=== PATIENT | female | born 1960 | race African-American/Black ===

== ENCOUNTER → 2017-05-18 | Day surgery (SDC) | payer OTHER, BC ==
--- NOTE | 2017-05-18 11:45 | OP ---
DATE OF OPERATION: 05/18/2017 PREOPERATIVE DIAGNOSIS: Abnormal left mammography. POSTOPERATIVE DIAGNOSIS: Abnormal left mammography. PROCEDURE: Left stereotactic needle biopsy with clips x2. SURGEON: Heidi Hassan MD ANESTHESIA: Local. COMPLICATIONS: None. This was a sterile procedure. INDICATION FOR PROCEDURE: Patient presented with screening mammography that noted a wide area of microcalcifications that seemed to be with normal tissue in the inferior left breast, one anterior, one posterior. My recommendation was needle biopsy. The procedure was discussed with all her questions answered. PROCEDURE IN DETAIL: Patient was brought to [facility] [place], laid prone on the Lorad table. Using the caudal approach, the calcifications in the inferior left breast were identified. First, the more anterior of the pair was targeted. A sterile prep was obtained. A target was chosen. There was a positive stroke margin. Using Betadine and 1% lidocaine, a 10-gauge Suros device was used to take several cores from this area. Cores showed calcification within them. These were handled using the calcification protocol. A bar-shaped clip was deployed in the area. Hemostasis was assured with direct pressure. Next, the more-posterior calcifications were identified. A sterile prep was obtained. A target was chosen. There was a positive stroke margin. Using Betadine and 1% lidocaine, a 10-gauge Suros device was used to take several cores from this area. Cores showed calcification within them. These were handled using the calcification protocol. A 8 shaped-shaped clip was deployed in this area. Hemostasis was assured with direct pressure. The incisions were closed with Steri-Strips. She tolerated the procedure well and left the breast imaging center in good condition. HEIDI HASSAN M.D. JOSE [id number] MTDD
--- NOTE | 2017-05-19 15:48 | PATH ---
Surgical Pathology Report Patient Name: AJ RICKS [facility]. Rec. #: [id number] /Age/Gender: 1960 (Age: 56) / F Account: [id number] Location: [facility] Taken: 05/18/2017 Received: 05/18/2017 Reported: 05/19/2017 Physicians: Heidi Jones M.D. Specimen(s) Received A: LEFT BREAST SPECIMEN, SITE 1, ANTERIOR, WITH CALCIFICATIONS. B: LEFT BREAST SPECIMEN, SITE 1, ANTERIOR, WITHOUT CALCIFICATIONS. C: LEFT BREAST SPECIMEN, SITE 2, POSTERIOR, WITH CALCIFICATIONS. D: LEFT BREAST SPECIMEN, SITE 2, POSTERIOR, WITHOUT CALCIFICATIONS Clinical History Nonpalpable lesion Mammographic findings: Microcalcification, suspicious Site 1= anterior; site 2= posterior Final Diagnosis A. LEFT BREAST, SITE #1 ANTERIOR WITH CALCIFICATION, STEREOTACTIC NEEDLE CORE BIOPSY: DUCTAL CARCINOMA IN SITU (DCIS), HIGH NUCLEAR GRADE, MICROPAPILLARY AND PAPILLARY PATTERNS WITH CENTRAL NECROSIS AND ASSOCIATED CALCIFICATION. B. LEFT BREAST, SITE #1 ANTERIOR WITHOUT CALCIFICATION, STEREOTACTIC NEEDLE CORE BIOPSY: DUCTAL CARCINOMA IN SITU (DCIS), HIGH NUCLEAR GRADE, MICROPAPILLARY AND PAPILLARY PATTERNS WITH CENTRAL NECROSIS AND ASSOCIATED CALCIFICATION. Results of Estrogen Receptor (ER) and Progesterone Receptor (WV) studies performed at [facility] are as follows: ER (clone 6F11 mouse monoclonal antibody by Leica):~75% nuclear staining with moderate intensity (Positive). WV (clone16 mouse monoclonal antibody by Leica):~90% nuclear staining with strong intensity (Positive). Positive and negative controls (internal if applicable) show appropriate results. Formalin fixation and cold ischemic times are within current ASCO/CAP recommendations for ER, WV and Her2 testing. C. LEFT BREAST, SITE #2 POSTERIOR WITH CALCIFICATION, STEREOTACTIC NEEDLE CORE BIOPSY: DUCTAL CARCINOMA IN SITU (DCIS), HIGH NUCLEAR GRADE, MICROPAPILLARY AND FOCAL SOLID PATTERNS WITH CENTRAL NECROSIS AND ASSOCIATED CALCIFICATION. Results of Estrogen Receptor (ER) and Progesterone Receptor (WV) studies performed at [facility] are as follows: ER (clone 6F11 mouse monoclonal antibody by Leica):~75% nuclear staining with moderate intensity (Positive). WV (clone16 mouse monoclonal antibody by Leica):~50% nuclear staining with strong intensity (Positive). Positive and negative controls (internal if applicable) show appropriate results. Formalin fixation and cold ischemic times are within current ASCO/CAP recommendations for ER, WV and Her2 testing. D. LEFT BREAST, SITE #2 POSTERIOR WITHOUT CALCIFICATION, STEREOTACTIC NEEDLE CORE BIOPSY: DUCTAL CARCINOMA IN SITU (DCIS), HIGH NUCLEAR GRADE, MICROPAPILLARY PATTERN WITH CENTRAL NECROSIS AND ASSOCIATED CALCIFICATION. Comment: Immunohistochemical stains for smooth muscle myosin heavy chain and p63 on Specimen B and Specimen C show preservation of the myoepithelial cell layer. This case was discussed with Dr. Jones on May 19, 2017. Electronically Signed Chaka Taylor M.D. Gross Description A. Received in formalin labeled "site 1 anterior left breast with calcifications," are 3 smiley-yellow, cylindrical portions of fibroadipose tissue ranging from 2.5-3.0 cm in length and averaging 0.2 cm in diameter. The specimens are submitted in toto in one cassette. B. Received in formalin labeled "site 1 anterior left breast without calcifications," are 4 smiley-yellow, cylindrical portions of fibroadipose tissue ranging from 2.5-3.0 cm in length and averaging 0.2 cm in diameter. The specimens are submitted in toto in one cassette. C. Received in formalin labeled "site 2 posterior left breast with calcifications," are 5 smiley-yellow, cylindrical portions of fibroadipose tissue ranging from 0.7-2.0 cm in length and averaging 0.2 cm in diameter. The specimens are submitted in toto in one cassette. D. Received in formalin labeled "site 2 posterior left breast without calcifications," are 3 smiley-yellow, cylindrical portions of fibroadipose tissue ranging from 2.2-3.3 cm in length and averaging 0.2 cm in diameter. The specimens are submitted in toto in one cassette. Time to formalin fixation: 5 minutes Total formalin fixation time: Approximately 7 hours. 05/18/201705/18/2017
== END | disposition home or self-care (01) ==
LOC: FMAMMOTONE 09:26
PROVIDERS: ATTEND Surgery
PROC: 0HBU3ZX Excision of Left Breast, Percutaneous Approach, Diagnostic (ICD-10-PCS; principal; 2017-05-18)
DX: D05.12 Intraductal carcinoma in situ of left breast (principal); R92.8 Other abnormal and inconclusive findings on diagnostic imaging of breast
CPT/HCPCS: 19081; 19082; 87899; 88305-TC; 88341-TC; 88342-TC; A4648

== ENCOUNTER 2017-07-15 06:47 | Day surgery (SDC) | payer BC, OTHER ==
[2017-07-14 12:19] VITALS: BMI 25.9
[2017-07-15] MEDS ORDERED: PROPOFOL 20 ML ONE (10:10)
[2017-07-15] MEDS ORDERED: fentaNYL CITRATE 250 MCG/5 ML VIAL ONE (10:10)
[2017-07-15] MEDS ORDERED: LIDOCAINE HCL/PF 2% SDV 5ML VIAL ONE (10:11)
[2017-07-15] MEDS ORDERED: ROCURONIUM BROMIDE 50 MG/5 ML VIAL ONE ×2 (10:11→14:09)
[2017-07-15] MEDS ORDERED: DEXAMETHASONE SOD PHOSPHATE 4 MG/1 ML VIAL ONE (10:11)
[2017-07-15] MEDS ORDERED: MIDAZOLAM HCL 2 MG/2 ML SINGLE DOSE VIAL ONE (10:11)
[2017-07-15] MEDS ORDERED: ISOSULFAN BLUE 10 MG/ML VIAL SQ ONE (12:30)
[2017-07-15] MEDS ORDERED: ceFAZolin SODIUM 1 GM VIAL ONE (12:38)
[2017-07-15] MEDS ORDERED: SODIUM CHLORIDE 0.9% P/F 10 ML VIAL IJ ONE (12:38)
[2017-07-15] MEDS ORDERED: ceFAZolin SODIUM 1 GM VIAL IVPB ONE (12:40)
[2017-07-15] MEDS ORDERED: DESFLURANE GAS 240 ML BOTTLE IH ONE (13:00)
[2017-07-15] MEDS ORDERED: ONDANSETRON 4 MG/2 ML VIAL IVPUSH PRN (14:40)
[2017-07-15] MEDS ORDERED: LACTATED RINGERS SOLUTION 1,000 ML IV SCH (14:45)
[2017-07-15] MEDS ORDERED: GLYCOPYRROLATE 0.2 MG/1 ML VIAL ONE (15:49)
[2017-07-15] MEDS ORDERED: NEOSTIGMINE METHYLSULFATE 0.5 MG/ML - 10 ML MDV ONE (15:49)
[2017-07-15] MEDS ORDERED: ONDANSETRON 4 MG/2 ML VIAL ONE (16:29)
--- NOTE | 2017-07-15 16:39 | OP ---
Operative Note - Note: Operative Date: 07/15/17 Pre-Operative Diagnosis: Left Breast Ductal Carcinoma In-Situ Operation: Left Breast Reconstruction after Lumpectomy, Right Breast Mastopexy with Small Reduction for Symmetry. Implants: None Surgeon: Orlando Nagel Anesthesiology Physician Assistant: Candelario Grant Anesthesia: General Drains & Tubes with Location: Diana Drains Bilateral Operative Report Dictated: Yes
[2017-07-15] MEDS ORDERED: ACETAMINOPHEN 1000 MG/100 ML VIAL (NON FORMULARY) IVPB ONE (18:00)
[2017-07-15] MEDS: oxyCODONE HCL 5 MG TABLET PO PRN (18:58)
--- NOTE | 2017-07-15 21:17 | OP ---
DATE OF OPERATION: 07/12/2017 PREOPERATIVE DIAGNOSIS: Left breast ductal carcinoma in situ, left breast intraductal papilloma. SURGEON: Heidi Jones MD ANESTHESIA: General. ESTIMATED BLOOD LOSS: Minimal. COMPLICATIONS: None. This was a sterile procedure. OVERHEAD CRANE OPERATOR: Orlando Nagel MD INDICATION FOR PROCEDURE: Patient had a routine screening mammography that noted 2 areas of clustered microcalcifications in the inferior left breast, and on ultrasound, noted a left breast, 6 o'clock, retroareolar nodule. Biopsy of all these 3 areas was performed. The calcification in both areas showed ductal carcinoma in situ, and the nodule showed an intraductal papilloma. My recommendation was a lumpectomy and excision of the nodule. The procedure was discussed with her. She met with Dr. Nagel to discuss a mastopexy at the same time. The procedure was discussed with her. All of her questions answered. PROCEDURE IN DETAIL: Patient was brought to [facility], taken into breast imaging where wire was used to localize the 3 clips in the inferior left breast, then brought to the operating room. She was taken to Nuclear Medicine, and technetium labeled sulfur colloid was injected into the left subareolar plexus at the 6 o'clock location to localize the sentinel node. She was brought up to the operating room . After induction of general anesthesia and IV antibiotics, both breasts and axilla were prepped and draped in usual sterile fashion. Isosulfan blue 5 mL was injected into the left subareolar plexus. The breast was then massaged for 5 minutes. The breast was re-prepped, re-draped, and a 4-cm incision was made in the left axilla, carried down to the clavipectoral fascia to identify 2 sentinel lymph nodes that were both blue and hot. These were sent for pathology analysis for permanent section. There was no other blue dye radioactivity or pathologically feeling lymph nodes in the left axilla. Therefore, next, a left breast excisional biopsy was performed. The incisions were made by Dr. Nagel for a reduction mammoplasty, and I used the inferior incision and the wire was used as a guide to get down to the area of interest in the 6 o'clock retroareolar location. This was excised en bloc and sent for specimen radiograph. Hemostasis was assured with electrocautery. Next, the left breast lumpectomy was performed. Again, the incision was made by Dr. Nagel, was used to take almost the entire inferior pole of the left breast down to the subcutaneous fat over the pectoralis. This was lagged with a long stitch lateral, short stitch superior, sent for specimen radiograph as a left breast lumpectomy. I took a new posterior margin as I felt that was close posteriorly. This was taken down to the pectoralis muscle and tagged with a stitch at the old margin. A specimen radiograph was performed, and I looked at these. The intraductal papilloma clip and wire were intact within the specimen. On the specimen for the left breast lumpectomy, there seemed to be multiple areas of clustering microcalcifications extending from the wire up superiorly towards the nipple. There was actually one set of calcifications right at the edge superiorly. Therefore, I went back and took a new superior margin with a stitch at the old margin. This was sent to Pathology for permanent section. Hemostasis assured with electrocautery. The patient was then left with Dr. Nagel to finish the plastics part of the procedure. Steffany [id number]
--- NOTE | 2017-07-15 21:53 | OP ---
DATE OF OPERATION: 07/15/2017 PREOPERATIVE DIAGNOSIS: Left breast ductal carcinoma in situ. POSTOPERATIVE DIAGNOSIS: Left breast ductal carcinoma in situ. PROCEDURE PERFORMED: Left breast reconstruction after lumpectomy and right breast mastopexy with small reduction for symmetry. SURGEON: Orlando Gutiérrez MD GERIATRICS PHYSICIAN: KATIE Gallagher ANESTHESIA: General via endotracheal tube. DESCRIPTION OF PROCEDURE: The patient was placed on the operating table in supine position, and general anesthesia was administered by the anesthesiologist. The area of the chest was then prepped and draped in usual sterile fashion. Dr. Jones approached the left breast through an incision inferior to the nipple-areola complex and performed lumpectomies based on the 3 wires that had been placed by Radiology. At the conclusion of her procedure, the nipple was left on a superiorly-based pedicle although it was thinned more than had been planned. The tissue had been removed from the inferior quadrant of the breast, removing a width of approximately 6 cm, extending up to and beneath the nipple-areola complex. Markings were used for surgery as they had been placed the day prior to surgery in the standing position, and markings were continued in a [place] pattern as designed. Superomedial and superolateral and superior flaps were developed, keeping a superomedial pedicle intact to provide vascularity to the nipple-areola complex. The medial and lateral pillars were mobilized and reapproximated centrally over a [place] drain which was placed and will exit the inframammary wound laterally. Dissection within the breast revealed multiple breast cysts, and these were additionally opened as necessary. The flaps were then mobilized and inset with 2-0 silk sutures as zelaya positions, and closure was performed in layered fashion. Deep tissues were closed using 3-0 and 4-0 Biosyn suture in interrupted buried fashion, and the inframammary wound was closed with number 4-0 V-Loc 90 in a continuous subcuticular fashion. All other wounds were closed using 4-0 nylon suture in simple interrupted fashion. Nipple remained with good color through the end of the procedure. The right breast was then addressed, and a reduction with mastopexy was performed for symmetry, removing approximately 100 mL of tissue. The flaps were created as designed by the markings made preoperatively. Dissection was carried down through subcutaneous tissues, and again, multiple breast cysts were identified, and some were excised on the right side. Hemostasis was achieved with electrocautery, and a Diana drain was additionally inserted and exited through the inframammary wound laterally. Closure was then performed in layered fashion. Deep tissues were closed with number 3-0 and 4-0 Biosyn suture in interrupted buried fashion, and all wounds were closed with number 4-0 V-Loc 90 suture in a continuous intradermal fashion. Wounds were further secured with Steri-Strips, and sterile dressings were applied and secured with a surgical bra. The patient was then awoken from anesthesia without any difficulty, and she was taken from the operating room to the recovery room in satisfactory condition, having tolerated the procedure well. ORLANDO GUTIÉRREZ M.D. [id number]
[2017-07-16] MEDS: oxyCODONE HCL 5 MG TABLET PO PRN ×2 (06:35→11:15)
--- NOTE | 2017-07-16 09:58 | PN ---
Progress Note (short form) - Note Progress Note: pod 1 doing well. afebrile. vss incisions healing well, nipples viable. dressing changed. incentive spirometer, ambulate, d/c today
[2017-07-16 14:47] VITALS: BP 113/74; PULSE 58; TEMP 98.7
[2017-07-16] MEDS ORDERED: oxyCODONE HCL 5 MG TABLET PO ONE (17:00)
--- NOTE | 2017-07-17 16:44 | SURG ---
Surgery Drafter Chief Design Note Drafter Chief Design: Candelario Grant PA-C Date of Service: 07/17/17 Diagnosis: Left Breast Ductal Carcinoma In-Situ Procedure: Left Breast Reconstruction after Lumpectomy, Right Breast Mastopexy with Small Reduction for Symmetry. I was present for the entirety of the operative procedure. For further detail, please refer to operative report. Visit type - Case Type Case Type: Scheduled Admission - New patient This patient is new to me today: Yes Date on this admission: 07/17/17
--- NOTE | 2017-07-19 14:28 | PATH ---
Surgical Pathology Report Patient Name: AJ RICKS [facility]. Rec. #: [id number] /Age/Gender: 1960 (Age: 56) / F Account: [id number] Location: AMBULATORY SURG Taken: 07/15/2017 Received: 07/15/2017 Reported: 07/19/2017 Physicians: Heidi Jones M.D. Specimen(s) Received A: LEFT BREAST EXCISION B: LEFT AXILLARY SENTINEL LYMPH NODE #1 C: LEFT AXILLARY SENTINEL LYMPH NODE #2 D: LEFT BREAST NEW POSTERIOR E: LEFT BREAST LUMPECTOMY F: LEFT BREAST NEW SUPERIOR MARGIN G: RIGHT BREAST TISSUE H: LEFT BREAST TISSUE Clinical History Left breast DCIS/papilloma Final Diagnosis A. BREAST, LEFT, EXCISION: INTRADUCTAL PAPILLOMA IN A BACKGROUND OF PROLIFERATIVE FIBROCYSTIC TO FIBROADENOMATOID CHANGES INCLUDING STROMAL FIBROSIS, APOCRINE METAPLASIA, MICROCYST FORMATION, USUAL DUCTAL HYPERPLASIA, DUCT ECTASIA, AND CHANGES OF PRIOR BIOPSY. B. AXILLA, LEFT, SENTINEL NODE #1, EXCISION: ONE BENIGN LYMPH NODE (0/1). C. AXILLA, LEFT, SENTINEL NODE #2, EXCISION: ONE BENIGN LYMPH NODE (0/1). D. BREAST, LEFT, NEW POSTERIOR MARGIN, EXCISION: DUCTAL CARCINOMA IN SITU (DCIS), HIGH NUCLEAR GRADE. DCIS IS PRESENT IN THREE OF TEN SLIDES (3/10). DCIS IS 3 MM FROM NEW POSTERIOR MARGIN. E. BREAST, LEFT, LUMPECTOMY: MULTIFOCAL DUCTAL CARCINOMA IN SITU (DCIS), HIGH NUCLEAR GRADE, SOLID, PAPILLARY AND MICROPAPILLARY PATTERNS WITH CENTRAL NECROSIS AND ASSOCIATED MICROCALCIFICATIONS. DCIS RANGE IN SIZE FROM 1-6 MM IN GREATEST MICROSCOPIC DIMENSION PRESENT IN FOURTEEN OF FIFTEEN SLIDES (14/15). DCIS IS <1 MM FROM SUPERIOR AND DEEP/POSTERIOR MARGIN, AND 1 MM FROM INFERIOR MARGIN. SKIN IS UNINVOLVED BY DCIS. SEE PARTS D AND F FOR FINAL SUPERIOR AND POSTERIOR MARGINS. REMAINDER OF BREAST TISSUE SHOWS INTRADUCTAL PAPILLOMAS IN A BACKGROUND OF PROLIFERATIVE FIBROCYSTIC CHANGES INCLUDING STROMAL FIBROSIS, APOCRINE METAPLASIA, MICROCYST FORMATION, USUAL DUCTAL HYPERPLASIA AND CHANGES OF PRIOR BIOPSY. PATHOLOGIC STAGE (pTNM): pTis pN0 (sn). SEE DCIS SUMMARY BELOW. F. BREAST, LEFT, NEW SUPERIOR MARGIN, EXCISION: SMALL INTRADUCTAL PAPILLOMA IN A BACKGROUND OF PROLIFERATIVE FIBROCYSTIC CHANGES. G. BREAST, RIGHT, EXCISION: BENIGN BREAST PARENCHYMA AND SKIN. H. BREAST, LEFT, EXCISION: BENIGN SKIN AND FIBROADIPOSE TISSUE. Comment: Myoepithelial markers p40 and smooth muscle myosin-heavy chain (SMM-HC) were utilized to evaluate to evaluate this case. Comments DCIS of the Breast: Surgical Pathology Cancer Case Summary (Based on AJCC TNM 8 th edition) Procedure _X_ Excision (less than total mastectomy) Specimen Laterality _X_ Left Size (Extent) of DCIS (parts D & E) Estimated size (extent) of DCIS (greatest dimension using microscopic evaluation): (millimeters): Ranges in size from 1-6 mm Number of blocks with DCIS: 17 Number of blocks examined: 25 Histologic Type _X_ Ductal carcinoma in situ Architectural Patterns _X_ Micropapillary _X_ Papillary _X_ Solid Nuclear Grade _X_ Grade III (high) Necrosis _X_ Present, central (expansive "comedo" necrosis) Margins _X_ Uninvolved by DCIS Distance from closest margin (millimeters): 1 mm from inferior margin; <1 mm from deep/posterior and superior margin on lumpectomy but uninvolved on additional submitted superior/posterior margins. Specify closest margin: Inferior margin Regional Lymph Nodes Lymph Node Examination Number of Lymph Nodes with Macrometastases (>2 mm): 0 Number of Lymph Nodes with Micrometastases (>0.2 mm to 2 mm and/or >200 cells): 0 Number of Lymph Nodes with Isolated Tumor Cells (=0.2 mm and =200 cells): 0 Number of Lymph Nodes Examined: 2 Number of [place] Nodes Examined: 2 Pathologic Stage Classification (pTNM, AJCC 8th Edition) Primary Tumor (pT) _X_ pTis (DCIS): Ductal carcinoma in situ Regional Lymph Nodes (pN) Modifier (required only if applicable) _x_ (sn): [place] node(s) evaluated. (pN) : _X__ pN0: No regional lymph node metastasis identified Microcalcifications _X_ Present in DCIS _X_ Present in nonneoplastic tissue Results of Estrogen Receptor (ER) and Progesterone Receptor (KS) studies performed on previous biopsy ([id number]) are as follows: Site 1 (Anterior): ER (clone 6F11 mouse monoclonal antibody by Leica): ~75% nuclear staining with moderate intensity (Positive). KS (clone16 mouse monoclonal antibody by Leica): ~90% nuclear staining with strong intensity (Positive). Site 2 (Posterior): ER (clone 6F11 mouse monoclonal antibody by Leica): ~75% nuclear staining with moderate intensity (Positive). KS (clone16 mouse monoclonal antibody by Leica): ~50% nuclear staining with strong intensity (Positive). Electronically Signed Cha Galo M.D. Gross Description A. Received fresh on an AccuGrid, labeled "left breast excisional biopsy," is a 5.8 x 4.5 x 2.0 cm. smiley-yellow, irregular, portion of fibroadipose tissue with a needle localization wire present. There is a short suture marking the superior aspect and a long suture marking the lateral aspect, per the surgeon. There is no skin or nipple present. The specimen is inked as follows: superior and lateral blue; inferior green; medial yellow; anterior red; deep/posterior black. The specimen is serially sectioned from superior to inferior. Sectioning reveals a focus of hemorrhage, consistent with a previous biopsy site. There is multifocal white fibrous tissue identified. No definite mass is identified. The specimen is entirely submitted in 14 cassettes as follows: 1-superior margin; 3-23-laezmsvnoskd submitted specimen from superior to inferior (one bisected section each in cassettes 4/5, 6/7, 8/9, /, 12/13); 14-inferior margin (biopsy site in cassette 5). Total formalin fixation time: 7 hours B. Received in formalin labeled "left axillary sentinel node #1," is a 2.5 x 1.2 x 0.6 cm smiley blue lymph node with attached fat. The specimen is bisected and entirely submitted in 2 cassettes. C. Received in formalin labeled "left axillary sentinel node #2," is a 2.0 x 1.3 x 0.6 cm smiley blue lymph node with attached fat. The specimen is bisected and entirely submitted in 2 cassettes. D. Received in formalin labeled "left breast new posterior margin," is a 7.0 x 4.3 x 1.8 cm portion of fibroadipose tissue with a suture marking the old margin, per surgeon. The new margin is inked blue and the specimen is serially sectioned. Crop Or Livestock Tenant Farmer sections are sequentially submitted in 10 cassettes. E. Received fresh on an AccuGrid, labeled "left breast lumpectomy," is a 13.0 x 9.0 x 2.6 cm. smiley-yellow, irregular, portion of fibroadipose tissue with 2 needle localization wires present. There is a short suture marking the superior aspect and a long suture marking the lateral aspect, per the surgeon. The anterior surface displays a 12.0 x 7.2 cm brown, irregular portion of skin. The specimen is inked as follows: Superior blue; inferior green; lateral red; medial yellow; deep black. The specimen is serially sectioned from superior to inferior. Sectioning reveals a 1.5 x 1.3 x 1.2 cm focus of firm fibrous tissue abutting the superior margin and 0.3 cm from the deep margin. There is an additional 2.5 x 2.0 x 2.0 cm focus of firm fibrous tissue focally abutting the deep margin in the central portion of the specimen, corresponding to the needle localization wires. There is a previous biopsy site identified within the focus of fibrous tissue. No definitive mass is identified. The remaining breast parenchyma displays fibrocystic changes. Crop Or Livestock Tenant Farmer sections are submitted in 16 cassettes as follows: 1-superior margin; 2-5-section of firm fibrous tissue near superior margin (each with deep margin); 6-11-focus of firm fibrous tissue with previous biopsy site from area of needle localization wires (each with deep margin); 12-inferior margin; 37-75-orhrpkw margin; 15-medial margin; 16-skin. Total formalin fixation time: 7 hours F. Received in formalin labeled "left breast new margin," and indicated on the requisition to be the new superior margin, is a 4.8 x 4.5 x 1.4 cm portion of fibroadipose tissue with a suture marking the old margin, per the surgeon. The new margin is inked blue and the specimen is serially sectioned. Crop Or Livestock Tenant Farmer sections are sequentially submitted in 8 cassettes. G. Received in formalin labeled "right breast tissue," is a 142 g, 13.5 x 11.5 x 3.2 cm aggregate of multiple portions of unoriented fibroadipose tissue and brown, unremarkable skin. Sectioning reveals foci of white fibrous tissue. No definitive masses are identified. Crop Or Livestock Tenant Farmer sections are submitted in 4 cassettes. H. Received in formalin labeled "left breast tissue," is a 51 g, 7.8 x 6.0 x 2.5 cm aggregate of multiple portions of unoriented fibroadipose tissue and brown, unremarkable skin. Sectioning reveals foci of white fibrous tissue. No definitive masses are identified. Crop Or Livestock Tenant Farmer sections are submitted in one cassette. 07/15/2017 [facility]07/15/2017
== END 2017-07-16 19:00 | disposition home or self-care (01) ==
LOC: JASU-SURG 06:47 → JASUSAT 06:47 → J6S 17:45 → JASUSAT 07-16 19:00
PROVIDERS: ATTEND Surgery
PROC: 0HBU0ZZ Excision of Left Breast, Open Approach (ICD-10-PCS; 2017-07-15)
PROC: 0HBU0ZX Excision of Left Breast, Open Approach, Diagnostic (ICD-10-PCS; 2017-07-15)
PROC: 0H0T0ZZ Alteration of Right Breast, Open Approach (ICD-10-PCS; 2017-07-15)
PROC: 0HBU0ZZ Excision of Left Breast, Open Approach (ICD-10-PCS; principal; 2017-07-15 11:30)
PROC: 0HBU0ZX Excision of Left Breast, Open Approach, Diagnostic (ICD-10-PCS; 2017-07-15 11:30)
DX: D05.12 Intraductal carcinoma in situ of left breast (principal); D05.92 Unspecified type of carcinoma in situ of left breast
CPT/HCPCS: 19281; 78195-TC; 84703; 88305-TC; 88307-TC; 94010; 94760; A9541

== ENCOUNTER 2019-02-06 06:04 | Day surgery (SDC) | payer BC, OTHER ==
[2019-02-05 13:07] VITALS: BMI 26.6
[2019-02-06] MEDS ORDERED: PROPOFOL 20 ML ONE ×2 (07:28)
[2019-02-06] MEDS ORDERED: ROCURONIUM BROMIDE 50 MG/5 ML SYRINGE ONE (07:28)
[2019-02-06] MEDS ORDERED: fentaNYL CITRATE 250 MCG/5 ML VIAL ONE (07:28)
[2019-02-06] MEDS ORDERED: MIDAZOLAM HCL 2 MG/2 ML SINGLE DOSE VIAL ONE ×2 (07:29)
[2019-02-06] MEDS ORDERED: ePHEDrine SULFATE 50 MG/1 ML AMPULE ONE (07:30)
[2019-02-06] MEDS ORDERED: BUPIVACAINE HCL/PF 0.5% (5 MG/ML) 30 ML VIAL IJ ONE ×2 (08:06→08:32)
[2019-02-06] MEDS ORDERED: ceFAZolin SODIUM 1 GM VIAL IVPB ONE (08:20)
[2019-02-06] MEDS ORDERED: HYDROmorphone HCl 2 MG/ML VIAL ONE (09:21)
--- NOTE | 2019-02-06 09:34 | OP ---
Operative Note - Note: Operative Date: 02/06/19 Pre-Operative Diagnosis: Breast Asymmetry after Breast Cancer Reconstruction, Painful Right Breast Inframammary Scar Operation: Right Breast Reconstruction Revision, Reduction of Lower Breast and Removal of Painful Inframammary Scar Post-Operative Diagnosis: Same as Pre-op Surgeon: Orlando Nagel Anesthesiologist/MAGNETIC TAPE COMPOSER OPERATOR: Rochelle East Anesthesia: General Specimens Removed: Right Breast Tissue, Right Breast Scar Operative Report Dictated: Yes
[2019-02-06] MEDS ORDERED: oxyCODONE HCL 5 MG TABLET PO PRN (09:45)
--- NOTE | 2019-02-06 10:50 | OP ---
DATE OF OPERATION: 02/06/2019 PREOPERATIVE DIAGNOSIS: Breast asymmetry after breast cancer reconstruction and painful right breast inframammary scar. POSTOPERATIVE DIAGNOSIS: Breast asymmetry after breast cancer reconstruction and painful right breast inframammary scar. PROCEDURE PERFORMED: Right breast reconstruction with reduction of lower breast and removal of painful inframammary scar. SURGEON: Orlando Nagel MD ANESTHESIA: GENEVIEVE Delatorre DESCRIPTION OF PROCEDURE: The patient was placed on the operating room in supine position, and general anesthesia was administered by the anesthesiologist. The area of the chest was prepped and draped in the usual sterile fashion. A right breast excision was designed including the inframammary scar and the lower pole of the right inferior breast and designed to reduce the areola to inframammary fold distance to approximately 6.5 cm, the same as the left breast. The area was infiltrated with solution of 0.5% Marcaine, and sufficient time was allowed for the Marcaine to take effect. The incision was made as marked and carried down through subcutaneous tissues. Superiorly, dissection continued to undermine the incision to reduce the bulk of the right breast inferior pole both centrally and laterally and to a lesser extent medially. This incision was performed with the electrocautery, and hemostasis was achieved. Inferior tissues were advanced towards the incision, and closure was performed in layered fashion. Deep tissues were closed with No. 3-0 Biosyn suture in interrupted, buried fashion, and an intradermal layer of 4-0 V-Lock 90 suture was used for skin. The wound was further secured with Steri-Strips, and sterile dressings were applied consisting of fluffs and secured with a surgical bra. The patient was then awoken from anesthesia without any difficulty and taken from the operating room to the recovery room in satisfactory condition having tolerated the procedure well. Steffany [id number]
[2019-02-06] MEDS ORDERED: ONDANSETRON 4 MG/2 ML VIAL IVPUSH PRN (12:07)
[2019-02-06] MEDS ORDERED: LACTATED RINGERS SOLUTION 1,000 ML IV SCH (12:15)
[2019-02-06] MEDS ORDERED: ONDANSETRON 4 MG/2 ML VIAL IVPUSH ONE (12:55)
[2019-02-06] MEDS ORDERED: METOCLOPRAMIDE HCL INJECTION 10 MG/2 ML VIAL IVPUSH ONE (14:41)
[2019-02-06] MEDS ORDERED: METOCLOPRAMIDE HCL INJECTION 10 MG/2 ML VIAL IVPB ONE (14:46)
[2019-02-06 16:33] VITALS: BP 145/93; PULSE 61; TEMP 98.5
--- NOTE | 2019-02-07 17:06 | PATH ---
Surgical Pathology Report Patient Name: AJ RICKS Med. Rec. #: [id number] /Age/Gender: 1960 (Age: 58) / F Account: [id number] Location: [facility] Taken: 02/06/2019 Received: 02/06/2019 Reported: 02/07/2019 Physicians: Orlando Nagel M.D. Specimen(s) Received RIGHT LOWER FOLD BREAST EXCISION Clinical History Breast cancer, breast reconstruction Final Diagnosis SKIN, BREAST, LOWER FOLD, RIGHT, EXCISION: SKIN AND UNDERLYING SUBCUTANEOUS TISSUE WITH DERMAL SCAR. Electronically Signed Cha Galo M.D. Gross Description Received in formalin labeled "right lower fold breast excision," is a 14.0 x 2.0 cm brown, elliptical, unoriented portion of skin excised to depth of 1.5 cm. The epidermal surface displays a healed scar. [employer] Hold sections are submitted in one cassette. /02/06/2019 saudi02/06/2019
== END 2019-02-06 17:50 | disposition home or self-care (01) ==
LOC: JASU-SURG 06:04
PROVIDERS: ATTEND Plastic Surgery
PROC: 0HBT0ZZ Excision of Right Breast, Open Approach (ICD-10-PCS; 2019-02-06)
PROC: 0HBT0ZZ Excision of Right Breast, Open Approach (ICD-10-PCS; principal; 2019-02-06 08:00)
DX: N65.1 Disproportion of reconstructed breast (principal); L90.5 Scar conditions and fibrosis of skin; B85.3 Phthiriasis
CPT/HCPCS: 84703; 88304-TC; 94760